=== PATIENT | male | born 1950 | race Caucasian/White ===

== ENCOUNTER → 2017-06-21 | Outpatient (CLI) | payer SELFPAY ==
--- NOTE | 2017-06-21 16:27 | RAD ---
Shoulder x-rays Indication: Acute right shoulder pain for 2 weeks. No injury. Technique: 3 views of the right shoulder Comparison: None Findings: No acute fracture or dislocation. Mild acromioclavicular osteoarthritis. No glenohumeral joint osteoarthritis. Visualized right lung is clear. Impression: No acute findings.
== END | disposition home or self-care (01) ==
LOC: DXRADRC 16:08
PROVIDERS: ATTEND Nurse Practitioner Family
DX: M19.011 Primary osteoarthritis, right shoulder (principal)
CPT/HCPCS: 73030

== ENCOUNTER → 2017-10-09 | Outpatient (CLI) | payer MEDICARE ==
--- NOTE | 2017-10-09 15:17 | RAD ---
Right hip, 2 views, 10/09/2017: History: Hip pain No fracture or dislocation is identified. The hip joint space is well-preserved with only minimal marginal spurring. The periarticular soft tissues are unremarkable. IMPRESSION: No acute right hip abnormality is detected.
== END | disposition home or self-care (01) ==
LOC: DXRAD 14:46
PROVIDERS: ATTEND General Practice
DX: M25.551 Pain in right hip (principal)
CPT/HCPCS: 73502

== ENCOUNTER → 2017-10-29 | Outpatient (CLI) | payer MEDICARE ==
--- NOTE | 2017-10-29 12:28 | RAD ---
3 views lumbar spine 10/29/2017 Indication: Low back pain Comparison study: None Findings: No evidence of acute fracture or alignment abnormality lumbar spine identified. Vertebral body heights are grossly maintained. Degenerative disc space narrowing seen at L4-5 and L5-S1. Facet arthrosis is also seen at the level. More mild diffuse facet arthrosis is also noted. Aortic calcification noted. Surgical clips noted in the left abdomen. Impression: Degenerative changes of the lumbar spine without evidence of acute fracture or alignment abnormality.
== END | disposition home or self-care (01) ==
LOC: PMG 10:26
PROVIDERS: ATTEND Physician Assistant Medical
DX: M47.896 Other spondylosis, lumbar region (principal); M48.061 Spinal stenosis, lumbar region without neurogenic claudication; I70.0 Atherosclerosis of aorta
CPT/HCPCS: 72100

== ENCOUNTER → 2017-11-19 | Outpatient (CLI) | payer MEDICARE ==
[2017-11-19 15:44] LABS: BASO # 0.1 x10^3/uL (0.0-0.2); BASO % 1 % (0-3); EOS # 0.2 x10^3/uL (0.0-0.7); EOS % 4 % (0-3); HEMATOCRIT 39.4 % (39.0-53.0); HEMOGLOBIN 13.6 g/dL (13.0-17.5); LYMPH # 1.9 x10^3/uL (1.0-4.8); LYMPH % 34 % (24-48); MEAN CORPUSCULAR HEMOGLOBIN 31 pg (25-35); MEAN CORPUSCULAR HGB CONC 35 g/dL (31-37); MEAN CORPUSCULAR VOLUME 89 fL (79-100); MONO # 0.5 x10^3/uL (0.0-1.1); MONO % 10 % (0-9); NEUT # 2.9 x10^3uL (1.8-7.7); NEUT % 52 % (31-73); PLATELET COUNT 269 x10^3/uL (140-400); RED BLOOD COUNT 4.45 x10^6/uL (4.30-5.70); RED CELL DISTRIBUTION WIDTH 13.2 % (11.5-14.5); WHITE BLOOD COUNT 5.5 x10^3/uL (4.0-11.0)
[2017-11-19 15:53] LABS: ALBUMIN 3.8 g/dL (3.4-5.0); CREATININE 1.7 mg/dL (0.7-1.3); GFR 40.3; MAGNESIUM 2.3 mg/dL (1.8-2.4); PHOSPHORUS 3.7 mg/dL (2.6-4.7); POTASSIUM 4.1 mmol/L (3.5-5.1)
[2017-11-20 14:17] LABS: CALCIUM PTH 9.4 mg/dL (8.6-10.2); CREATININE PTH 1.61 mg/dL (0.76-1.27); PTH INTACT 30 pg/mL (15-65)
== END | disposition home or self-care (01) ==
LOC: LAB 14:49
PROVIDERS: ATTEND Nurse Practitioner Family
DX: I12.9 Hypertensive chronic kidney disease with stage 1 through stage 4 chronic kidney disease, or unspecified chronic kidney disease (principal); N18.3 Chronic kidney disease, stage 3 (moderate); E87.5 Hyperkalemia; D64.9 Anemia, unspecified; Z90.5 Acquired absence of kidney
CPT/HCPCS: 36415; 80069; 83735; 83970; 85025

== ENCOUNTER → 2018-06-19 | Outpatient (CLI) | payer MEDICARE ==
--- NOTE | 2018-06-19 12:09 | RAD ---
EXAM: Left lower extremity venous Doppler sonogram. HISTORY: Pain. TECHNIQUE: De [place] O scale and color Doppler sonographic evaluation of the left lower extremity veins with spectral waveform analysis was performed. FINDINGS: There is normal color flow, normal compressibility and there are normal spectral waveforms in the lower extremity veins. IMPRESSION: No Doppler evidence of lower extremity deep venous thrombosis. Electronically signed by: Jaz Bahena MD (06/19/2018 12:05 PM) [place] [id number]
--- NOTE | 2018-06-19 16:27 | RAD ---
Left lower extremity arterial ultrasound History: Left leg pain for years Findings: Multiple grayscale, color, and duplex spectral analysis sonographic images were acquired of the left lower extremity arteries. There are mostly biphasic waveforms other than monophasic waveform of the dorsalis pedis artery. There is scattered plaque throughout the left common femoral artery, superficial femoral artery, and the popliteal artery. No significant focal stenosis or vessel occlusion is demonstrated. Velocities in cm/sec: Common femoral artery 124 Profunda femoris artery 124 Proximal SFA 93 Mid SFA 82 Distal SFA 79 Popliteal artery 60 Anterior tibial artery 42 Dorsalis pedis artery 14 Posterior tibial artery 62 Peroneal artery 62 Impression: 1. No significant focal stenosis or vessel occlusion is demonstrated, scattered plaque. There is abnormal monophasic waveform and lower velocity of the left dorsalis pedis artery. Electronically signed by: Graeme Sanchez MD (06/19/2018 4:23 PM) [id number]
== END | disposition home or self-care (01) ==
LOC: US 09:24
DX: I70.292 Other atherosclerosis of native arteries of extremities, left leg (principal)
CPT/HCPCS: 93926; 93971

== ENCOUNTER → 2018-11-29 | Outpatient (CLI) | payer MEDICARE ==
[2018-11-29 11:26] LABS: ALBUMIN 3.9 g/dL (3.4-5.0); BASO # 0.1 x10^3/uL (0.0-0.2); BASO % 1 % (0-3); CALCIUM 9.4 mg/dL (8.5-10.1); CREATININE 1.5 mg/dL (0.7-1.3); EOS # 0.1 x10^3/uL (0.0-0.7); EOS % 3 % (0-3); GFR 46.4; HEMATOCRIT 43.5 % (39.0-53.0); HEMOGLOBIN 14.8 g/dL (13.0-17.5); LYMPH # 1.4 x10^3/uL (1.0-4.8); LYMPH % 31 % (24-48); MAGNESIUM 2.1 mg/dL (1.8-2.4); MEAN CORPUSCULAR HEMOGLOBIN 30 pg (25-35); MEAN CORPUSCULAR HGB CONC 34 g/dL (31-37); MEAN CORPUSCULAR VOLUME 88 fL (79-100); MONO # 0.3 x10^3/uL (0.0-1.1); MONO % 8 % (0-9); NEUT # 2.5 x10^3uL (1.8-7.7); NEUT % 57 % (31-73); PHOSPHORUS 3.4 mg/dL (2.6-4.7); PLATELET COUNT 266 x10^3/uL (140-400); POTASSIUM 4.4 mmol/L (3.5-5.1); RED BLOOD COUNT 4.92 x10^6/uL (4.30-5.70); RED CELL DISTRIBUTION WIDTH 13.2 % (11.5-14.5); WHITE BLOOD COUNT 4.4 x10^3/uL (4.0-11.0)
[2018-11-30 05:36] LABS: CALCIUM PTH 9.2 mg/dL (8.6-10.2); CREATININE PTH 1.46 mg/dL (0.76-1.27); PTH INTACT 28 pg/mL (15-65); UR CREATININE RD 53.9 mg/dL (Not Estab.); UR PROTEIN RD <4.0 mg/dL (Not Estab.)
== END | disposition home or self-care (01) ==
LOC: LAB 10:27
PROVIDERS: ATTEND Nurse Practitioner Adult Health
DX: I12.9 Hypertensive chronic kidney disease with stage 1 through stage 4 chronic kidney disease, or unspecified chronic kidney disease (principal); N18.3 Chronic kidney disease, stage 3 (moderate); Z90.5 Acquired absence of kidney
CPT/HCPCS: 36415; 80069; 82043; 82570; 83735; 83970; 84156; 85025